=== PATIENT | female | born 1990 | race Caucasian/White ===

== ENCOUNTER 2016-11-17 11:44 | Emergency (ER) | payer OTHER ==
[~2016-11-17] VITALS: Ht 160 cm; Wt 115.0 kg
[~2016-11-17 11:44] MED LIST: PREN-39 PO; PRENATALS
[2016-11-17 12:16] VITALS: Ht 160 cm; Wt 115.0 kg
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
--- NOTE | 2016-11-17 14:01 | RADRPT ---
PROCEDURE: XR right toes. CLINICAL INDICATION: Injury TECHNIQUE: 3 views of the right fifth toe are available for review COMPARISON: No prior studies are available for comparison. FINDINGS: There is a minimally displaced fracture of the base of the fifth distal phalanx at the DIP joint. T he remaining osseous structures are intact. No radiopaque foreign body is seen. IMPRESSION: 1. Mildly displaced intra-articular fracture at the base of the fifth distal phalanx. RPTAT: TT .Darren Yoo MD, MD Date Time Electronically viewed and signed by .Darren Yoo MD, MD on 11/17/2016 14:00 .d/
[2016-11-17] MEDS ORDERED: IBUP-1542 PO (14:26)
[2016-11-17 14:41] VITALS: BP 124/78; RESP 20; TEMP 98.2
== END 2016-11-17 14:43 | disposition home or self-care (01) ==
LOC: FTE 11:44
DX: S92.531A Displaced fracture of distal phalanx of right lesser toe(s), initial encounter for closed fracture (principal); F17.210 Nicotine dependence, cigarettes, uncomplicated; W50.1XXA Accidental kick by another person, initial encounter; Y92.9 Unspecified place or not applicable
CPT/HCPCS: 73660; Z7502